=== PATIENT | male | born 1945 | race Caucasian/White ===

== ENCOUNTER 2023-08-11 12:12 | Emergency (ER) | payer MEDICARE, OTHER ==
[~2023-08-11] VITALS: Ht 182.9 cm; Wt 78.5 kg
[~2023-08-11 12:12] MED LIST: ESCI10TA45 PO; OLME1TAB19 PO; ROSU10TA2 PO
[2023-08-11 14:05] VITALS: PULSE 88; RESP 16; O2SAT 95
[2023-08-11 14:15] VITALS: PULSE 66; RESP 18; O2SAT 96
[2023-08-11] MEDS: dexamethasone sod phosphate 10mg/ml inj IM STA (14:20)
[2023-08-11] MEDS: ipratropium/albuterol 3ml nebule NEB ONE ×2 (14:52→14:54)
[2023-08-11] MEDS ORDERED: AZIT250T83 PO (15:25)
[2023-08-11] MEDS ORDERED: PRED20TA PO (15:25)
[2023-08-11 15:32] VITALS: BP 133/73; PULSE 99; RESP 18; TEMP 97.9; O2SAT 92
== END 2023-08-11 15:36 | disposition home or self-care (01) ==
LOC: ER 12:13
DX: U07.1 COVID-19 (principal); I10 Essential (primary) hypertension; E78.00 Pure hypercholesterolemia, unspecified; Z88.0 Allergy status to penicillin; Z91.013 Allergy to seafood; Z79.899 Other long term (current) drug therapy
CPT/HCPCS: 71045; 94640; 96372; 99284; J1100; 94760

== ENCOUNTER 2023-12-14 13:54 | Outpatient (CLI) | payer MEDICARE, OTHER ==
[~2023-12-14] VITALS: Ht 182.9 cm; Wt 97.5 kg
[2023-12-14] MEDS: albuterol 2.5 MG/3 ML nebule NEB ONE (15:05)
[2023-12-14 15:14] VITALS: PULSE 59; RESP 16; O2SAT 92
[2023-12-14 15:31] VITALS: PULSE 73; RESP 16
== END 2023-12-14 23:59 | disposition home or self-care (01) ==
LOC: RT 13:54
PROVIDERS: ATTEND Family Medicine
DX: J44.9 Chronic obstructive pulmonary disease, unspecified (principal); R09.02 Hypoxemia
CPT/HCPCS: 94060; 94727; 94729; 94760; A4620

== ENCOUNTER 2024-09-17 20:52 | Emergency (ER) | payer MEDICARE, OTHER ==
[~2024-09-17] VITALS: Ht 182.9 cm; Wt 73.8 kg
[2024-09-17 21:34] LABS: CLARITY,URINE TURBID (Clear); COLOR,URINE BROWN (Yellow); UA COLLECTION TYPE CLN CATCH MIDSTREAM
[2024-09-17 21:38] LABS: BASOPHILS # (AUTO) 0.1 X10'3 (0-0.2); BASOPHILS % (AUTO) 0.6 % (0-1); EOSINOPHILS # (AUTO) 0.1 X10'3 (0-0.9); HEMATOCRIT 41.3 % (42.0-52.0); HEMOGLOBIN 13.7 g/dl (14.0-17.9); LYMPHOCYTES # (AUTO) 1.4 X10'3 (1.1-4.8); MEAN CORPUSCULAR HEMOGLOBIN 30.2 PG (27.0-31.0); MEAN CORPUSCULAR HGB CONC 33.1 g/dL (33.0-36.5); MEAN CORPUSCULAR VOLUME 91.2 FL (78-98); MEAN PLATELET VOLUME 8.9 FL (7.4-10.4); NEUTROPHILS # (AUTO) 9.5 X10'3 (1.8-7.7); NEUTROPHILS % (AUTO) 78.4 % (42-75); PLATELET COUNT 197 X10'3 (140-440); RED BLOOD COUNT 4.53 X10'6 (4.70-6.10); RED CELL DISTRIBUTION WIDTH 14.3 % (11.5-14.5); WHITE BLOOD COUNT 12.1 X10'3 (4.5-11.0)
[2024-09-17 21:45] LABS: ALANINE AMINOTRANSFERASE 24 U/L (12-78); ALBUMIN/GLOBULIN RATIO 1.5 (1.1-1.5); ALKALINE PHOSPHATASE 79 IU/L (46-116); ANION GAP 5 (8-16); ASPARTATE AMINO TRANSFERASE 27 U/L (10-37); BILIRUBIN,TOTAL 0.5 MG/DL (0.1-1.0); BLOOD UREA NITROGEN 21 MG/DL (7-18); BUN/CREATININE RATIO 22.3 (10.0-20.0); CALCIUM 8.9 MG/DL (8.5-10.1); CHLORIDE 101 MMOL/L (99-107); CREATININE 0.94 MG/DL (0.60-1.10); GLUCOSE 104 MG/DL (70-104); LIPASE 28 U/L (16-77); POTASSIUM 4.2 MMOL/L (3.5-5.1); SODIUM 140 MMOL/L (135-145); TOTAL CARBON DIOXIDE 33.6 MMOL/L (24-32); TOTAL PROTEIN 6.6 G/DL (6.4-8.2); eCRCL 69 ML/MIN; eGFR 78 ML/MIN
[2024-09-17 21:55] LABS: RBC,URINE TNTC /HPF (0-2)
[2024-09-17 21:59] LABS: BACTERIA,URINE 2+ /HPF (Neg); MUCUS STRANDS NONE SEEN /LPF (Neg); SQUAMOUS EPITHELIAL CELL,UR NONE SEEN /LPF (FEW); WBC,URINE TNTC /HPF (0-4)
[2024-09-17 22:46] VITALS: TEMP 98.3
--- NOTE | 2024-09-17 23:49 | Physician Documentation ---
History of Present Illness ~ Chief Complaint: Urinary Symptoms Stated Complaint: BLOOD IN URIN Time Seen by MD: 23:39 Primary Medical Doctor: JAQUELIN Mode of Arrival: POV HPI Patient presents to the emergency room with one day history of burning urination and blood in urine. Denies any flank pain or abdominal pain. No fevers. Has distant history of urinary tract infection. Medication Reconciliation Allergies: Coded Allergies: Penicillins (Unverified Allergy, Intermediate, HIVES, 09/17/24) >5 years, hives, treatment required shellfish derived (Unverified Allergy, Intermediate, BODY HIVES, 09/17/24) Scheduled Escitalopram Oxalate* (Lexapro*), 10 MG PO DAILY, (Reported) Olmesartan/Hctz* (Benicar Hct 20/12.5 MG*), 1 TAB PO DAILY, (Reported) Rosuvastatin Calcium* (Crestor*), 10 MG PO DAILY, (Reported) Past Medical History Past Medical History: High Cholesterol, Hypertension Past Surgical History: orthopedic surgeries Alcohol Use: Occasionally Drug Use: none Lives with: Spouse Review of Systems ROS All review of systems negative except as per HPI Physical Exam Vital Signs: Temperature: 98.3, Source: Oral, Heart Rate: 60, Respiratory Rate: 18, BP: 151/69, Pulse Oximetry: 98, Weight: 73.750 Oxygen Flow Rate: 3.0 Physical Exam General: Patient is awake, alert, oriented x4 in no acute distress and well appearing.~ Head: Normocephalic and atraumatic. Eyes: Conjunctival normal. EOMI. PERRL. ENT: Mucous membranes moist. Neck: Supple, trachea is midline. Chest: Clear to auscultation bilaterally without rales, rhonchi, or wheezes. There is no accessory muscle use or retractions. Cardiac: RRR without murmurs, gallops, or rubs. Abd: Soft, nondistended, nontender, with normoactive bowel sounds. No guarding, rebound, or rigidity. Back: No midline spinal or CVA tenderness. Progress Results/Orders Results/Orders Orders - SHARON BERNAL MD Cult Urine + [address] (09/17/24 22:00) Ceftriaxone Im Kit W/Lidocaine (Rocephin (09/17/24 23:45) Completed Orders - SHARON BERNAL MD Cbc/Diff (09/17/24 21:15) BMP (09/17/24 21:15) Lipase (09/17/24 21:15) CMP (09/17/24 21:15) Ua W/Microscopic, Cult If Ind (09/17/24 21:20) Vital Signs 09/17/24 09/17/24 09/17/24 09/17/24 11:48 21:13 22:41 22:46 Temp 98.3 Pulse 65 60 Resp 15 16 18 B/P (MAP) 146/85 151/69 (96) Pulse Ox 92 98 O2 Delivery Nasal Cannula O2 Flow Rate 3.0 3.0 Laboratory Tests Test 09/17/24 21:20 09/17/24 21:23 Urine Specimen Description Cln catch midstream Urine Color Brown Urine Clarity Turbid Urine pH Urine Specific Shock Urine Protein Urine Glucose (UA) Urine Ketones Urine Occult Blood Urine Nitrite Urine Bilirubin Urine Urobilinogen Urine Leukocyte Esterase Urine RBC Tntc Urine WBC Tntc H Urine Squamous Epithelial Cells None seen Urine Bacteria 2+ Urine Mucus None seen Urine Culture Indicated Indicated Volume Urine Centrifuged 10 ml Urine Comment See note White Blood Count 12.1 H Red Blood Count 4.53 L Hemoglobin 13.7 L Hematocrit 41.3 L Mean Corpuscular Volume 91.2 Mean Corpuscular Hemoglobin 30.2 Mean Corpuscular Hemoglobin Concent 33.1 Red Cell Distribution Width 14.3 Platelet Count 197 Mean Platelet Volume 8.9 Neutrophils (%) (Auto) 78.4 H Lymphocytes (%) (Auto) 12.0 L Monocytes (%) (Auto) 8.0 Eosinophils (%) (Auto) 1.0 Basophils (%) (Auto) 0.6 Neutrophils # (Auto) 9.5 H Lymphocytes # (Auto) 1.4 Monocytes # (Auto) 1.0 H Eosinophils # (Auto) 0.1 Basophils # (Auto) 0.1 CBC Comment Sodium Level 140 Potassium Level 4.2 Chloride Level 101 Carbon Dioxide Level 33.6 H Anion Gap 5 L Blood Urea Nitrogen 21 H Creatinine 0.94 Estimated GFR/1.73 m2 78 BUN/Creatinine Ratio 22.3 H Glucose Level 104 Calcium Level 8.9 Total Bilirubin 0.5 Aspartate Amino Transf (AST/SGOT) 27 Alanine Aminotransferase (ALT/SGPT) 24 Alkaline Phosphatase 79 Total Protein 6.6 Albumin 4.0 Globulin 2.6 L Albumin/Globulin Ratio 1.5 Lipase 28 Chemistry Comments Microbiology Date/Time Source Procedure Growth Status 09/17/24 22:00 Urine Clean Catch Midstream Urine Culture - Preliminary Culture received. Resulted Medical Decision Making Findings Patient presented to the emergency room for evaluation of dysuria. Differentials include but are not limited to kidney stone, interstitial cystitis, urinary tract infection, bladder spasms therefore emergent labs order ed. Labs show urinary tract infection with hematuria. Mild elevation of white blood cell count however no fevers and he is nontoxic appearing with no flank pain or abdominal pain I believe he will do well on outpatient basis. I have considered kidney stone but with no flank pain I do not feel patient requires CT scan for investigation into this. ER precautions discussed Departure Disposition: 01 HOME / SELF CARE / HOMELESS Impression: Primary Impression: Acute urinary tract infection Condition: Stable Discharge Instructions: Urinary Tract Infection, Adult Referrals: NO PRIMARY CARE PROVIDER (PCP) Education Educated: Patient Educated regarding: diagnosis, treatment, need for follow up Signature Scribe Signature: No scribe Attestation: The note accurately reflects work and decisions made by me.Sharon Bernal MD 09/17/24 23:48 SHARON BERNAL MD September 17, 2024 23:49
[2024-09-17] MEDS: CefTRIAXone 1000mg IM Kit (w/lidocaine diluent) IM ONE (23:58)
[2024-09-17] MEDS ORDERED: CEPH-585 PO (23:59)
[2024-09-18 00:08] VITALS: BP 159/71; PULSE 61; RESP 18; O2SAT 95
== END 2024-09-18 00:06 | disposition home or self-care (01) ==
LOC: ER 20:53
DX: N39.0 Urinary tract infection, site not specified (principal); E78.00 Pure hypercholesterolemia, unspecified; I10 Essential (primary) hypertension; Z88.0 Allergy status to penicillin; Z88.8 Allergy status to other drugs, medicaments and biological substances
CPT/HCPCS: 36415; 80053; 81001; 83690; 85025; 87088; 96372; 99283; A4615; J0696

== ENCOUNTER 2025-01-27 14:53 | Outpatient (CLI) | payer MEDICARE, OTHER ==
[2025-01-21 11:56] LABS: CREATININE 0.76 MG/DL (0.60-1.10); TOTAL CARBON DIOXIDE 34.1 MMOL/L (24-32); eGFR > 90 ML/MIN
[~2025-01-27 14:53] MED LIST changes: +iohexol 300mg/ml 100ml inj. ONE
--- NOTE | 2025-01-27 20:23 | RADIOLOGY REPORT ---
CLINICAL HISTORY: PROSTATE CANCER TECHNIQUE: Chest CT was performed with 100 ml of omnipaque 300 administered intravenously. This exam was performed according to our departmental dose optimization program. Up-to-date CT equipment and radiation dose reduction techniques are utilized as appropriate. WID: COMPARISON: DI CHEST,SINGLE VIEW on DOS: 08/11/23 FINDINGS: Lower Neck: Unremarkable Axilla, Mediastinum and Sushma: There is mild mediastinal and bilateral hilar lymphadenopathy. Mildly prominent bilateral axillary lymph nodes. Heart and Great Vessels: There is a battery pack in the upper anterior left chest wall with pacemaker leads terminating in the right atrial appendage and right ventricle. Normal-sized heart without pericardial effusion. The thoracic aorta is patent and normal caliber with moderate mixed atherosclerotic plaque. The central pulmonary arteries are patent. Moderate 3-vessel calcified coronary artery disease. Mild aortic valve calcification. Airway, Lungs and Pleura: Trachea contains linear secretions. Trachea and central airways are patent. There is mild bronchial wall thickening. There is centrilobular emphysema Up to moderate. Linear bibasilar scarring or atelectasis. There is a lobulated nodule in the left lower lobe 1.0 x 0.9 x 1.8 cm on series 3, image 47 and series 602, image 93. No consolidative pneumonia, right pleural effusion, or pneumothorax. Small left pleural effusion. Upper Abdomen: There are small well-defined hypodense lesions in both lobes of the liver. Major portal veins are patent. No acute abnormality in the upper abdomen. Chest Wall and Osseous Structures: Multilevel thoracic spondylosis. There is no destructive osseous lesion. There is small symmetric bilateral gynecomastia. IMPRESSION: 1. Lobulated left lower lobe pulmonary nodule measuring 1.0 x 0.9 x 1.8 cm. Correlate with any prior imaging if available. Otherwise PET-CT or biopsy could be obtained for further evaluation if clinically indicated. 2. Mild bilateral hilar and mediastinal lymphadenopathy which is indeterminate and can be followed up by PET-CT and /or short-term follow-up surveillance imaging. 3. Moderate Centrilobular emphysema. 4. Moderate 3-vessel calcified coronary artery disease and mild aortic valve calcification.
== END 2025-01-27 23:59 | disposition home or self-care (01) ==
LOC: RAD 14:53
PROVIDERS: ATTEND Student in an Organized Health Care Education/Training Program
DX: J43.2 Centrilobular emphysema (principal); J90 Pleural effusion, not elsewhere classified; R91.1 Solitary pulmonary nodule; C61 Malignant neoplasm of prostate; J98.09 Other diseases of bronchus, not elsewhere classified; R59.0 Localized enlarged lymph nodes; I70.0 Atherosclerosis of aorta; I35.8 Other nonrheumatic aortic valve disorders; K76.89 Other specified diseases of liver; M47.814 Spondylosis without myelopathy or radiculopathy, thoracic region; N62 Hypertrophy of breast; I25.10 Atherosclerotic heart disease of native coronary artery without angina pectoris
CPT/HCPCS: 36415; 71260; 80053; Q9967